=== PATIENT | female | born 1985 | race Caucasian/White ===

== ENCOUNTER 2017-09-06 15:33 | Inpatient (IN) | payer MEDICAID, OTHER ==
[2017-09-06] MEDS ORDERED: METHYLERGONOVINE 0.2 MG INJ IM (17:00)
[2017-09-06] MEDS ORDERED: OXYTOCIN 30 UNITS/LR 500 ML IV (17:00)
[2017-09-06] MEDS ORDERED: IBUPROFEN 600 MG TAB PO (17:00)
[2017-09-06] MEDS ORDERED: BUTORPHANOL 2 MG INJ IV (17:00)
[2017-09-06] MEDS ORDERED: LIDOCAINE 1% (MPF) 30 ML INJ INJ (17:00)
[2017-09-06] MEDS ORDERED: CARBOPROST 250 MCG INJ IM (17:00)
[2017-09-06] MEDS ORDERED: MISOPROSTOL 200 MCG TAB PR (17:00)
[2017-09-06] MEDS: LACTATED RINGER'S 1,000 ML IV (17:39)
[2017-09-06 17:53] LABS: ADD MAN DIFF? NO
[2017-09-06 17:56] LABS: WHITE BLOOD COUNT 7.9 10^3/ul (4.8-10.8)
[2017-09-06 17:56] LABS: BASOPHILS % 0.5 % (0.0-2.0); EOSINOPHILS # 0.7 10^3/ul (0.0-0.5); EOSINOPHILS % 8.2 % (0.0-7.0); HEMATOCRIT 33.5 % (37.0-47.0); HEMOGLOBIN 11.4 g/dl (12.0-16.0); LYMPHOCYTES % 24.9 % (15.0-51.0); MEAN CORPUSCULAR HEMOGLOBIN 31.3 pg (29.0-33.0); MEAN PLATELET VOLUME 9.9 fl (7.4-10.4); MONOCYTE # 0.5 10^3/ul (0.3-0.9); MONOCYTES % 6.3 % (0.0-11.0); NEUTROPHIL # 4.7 10^3/ul (1.6-7.5); NEUTROPHILS % 59.8 % (39.0-77.0); PLATELET COUNT 231 10^3/UL (140-415); RED BLOOD COUNT 3.64 10^6/ul (4.20-5.40); RED CELL DISTRIBUTION WIDTH 13.5 % (11.5-14.5)
[2017-09-06 18:16] LABS: INR 0.87; PARTIAL THROMBOPLASTIN TIME 27.9 Sec (25.0-35.0); PROTIME 11.9 Sec (11.9-14.9); PT RATIO 0.9
[2017-09-06 18:54] LABS: HEPATITIS B SURFACE ANTIGEN NEGATIVE (NEGATIVE)
[2017-09-06] MEDS: DINOPROSTONE 10 MG VAG SUPP VAG (23:33)
[2017-09-07] MEDS: LACTATED RINGER'S 1,000 ML IV ×5 (00:15→14:39)
[2017-09-07] MEDS ORDERED: OXYTOCIN 30 UNITS/LR 500 ML BAG IV (07:00)
[2017-09-07] MEDS ORDERED: FENTAnyl 2MCG/ML-ROPIV 0.2% 100 ML (07:38)
[2017-09-07] MEDS ORDERED: OXYTOCIN 30 UNITS/LR 500 ML IV ×2 (08:00→23:30)
[2017-09-07] MEDS ORDERED: ONDANSETRON 4 MG INJ IV ×3 (08:30→23:30)
[2017-09-07] MEDS ORDERED: DIPHENHYDRAMINE 50 MG INJ IV ×3 (08:30→23:30)
[2017-09-07] MEDS ORDERED: NALOXONE (0.4 MG/ML) INJ IV ×2 (08:30→23:30)
[2017-09-07] MEDS ORDERED: HYDROmorphONE 0.5 MG/0.5 ML SYG IV ×2 (08:30→23:30)
[2017-09-07] MEDS ORDERED: ZOLPIDEM 5 MG TAB PO (08:30)
[2017-09-07] MEDS: OXYTOCIN 30 UNITS/LR 500 ML IV ×3 (09:57→23:23)
[2017-09-07] MEDS: FENTAnyl 2MCG/ML-ROPIV 0.2% 100 ML BAG EPI (16:09)
[2017-09-07] MEDS ORDERED: CHLOROPROCAINE 3% (MPF) 20 ML INJ (18:48)
[2017-09-07] MEDS ORDERED: PHENYLephrine (100 MCG/ML) 5ML SYG (18:59)
[2017-09-07] MEDS ORDERED: morphine SULFATE/PF (10 MG/10 ML) INJ (19:38)
[2017-09-07] MEDS: KETOROLAC 30 MG INJ IV (20:09)
[2017-09-07 21:58] LABS: RAPID PLASMA REAGIN NONREACTIVE (NR)
[2017-09-07 22:08] LABS: ADD UMIC YES; UR ASCORBIC ACID NEGATIVE (NEGATIVE); UR BILIRUBIN (Dip) NEGATIVE (NEGATIVE); UR BLOOD (Dip) 2+ mg/dL (NEGATIVE); UR CLARITY CLEAR (CLEAR); UR COLOR STRAW (YELLOW); UR GLUCOSE (Dip) NEGATIVE (NEGATIVE); UR KETONES (Dip) 1+ mg/dL (NEGATIVE); UR LEUKOCYTE ESTERASE (Dip) NEGATIVE Leu/ul (NEGATIVE); UR NITRITE (Dip) NEGATIVE (NEGATIVE); UR RBC 13 /HPF (0-5); UR SPECIFIC GRAVITY (Dip) 1.005 (1.003-1.030); UR TOTAL PROTEIN (Dip) NEGATIVE (NEGATIVE); UR UROBILINOGEN (Dip) NEGATIVE (NEGATIVE); UR WBC 1 /HPF (0-5)
[2017-09-07] MEDS ORDERED: HYDROmorphONE 2 MG/ML SYG (22:13)
[2017-09-07] MEDS: CEFAZOLIN 2 GM/50 ML (PMX) 50 ML IV (22:15)
[2017-09-07 22:22] LABS: ADD MAN DIFF? NO
[2017-09-07 22:26] LABS: BASOPHILS % 0.3 % (0.0-2.0); EOSINOPHILS # 0.1 10^3/ul (0.0-0.5); EOSINOPHILS % 0.5 % (0.0-7.0); HEMATOCRIT 30.3 % (37.0-47.0); HEMOGLOBIN 10.3 g/dl (12.0-16.0); LYMPHOCYTES # 0.7 10^3/ul (0.8-2.9); MEAN CORPUSCULAR HEMOGLOBIN 31.1 pg (29.0-33.0); MEAN CORPUSCULAR VOLUME 91.5 fl (82.0-101.0); MEAN PLATELET VOLUME 9.9 fl (7.4-10.4); MONOCYTE # 0.7 10^3/ul (0.3-0.9); MONOCYTES % 4.8 % (0.0-11.0); NEUTROPHIL # 13.3 10^3/ul (1.6-7.5); NEUTROPHILS % 89.1 % (39.0-77.0); PLATELET COUNT 212 10^3/UL (140-415); RED BLOOD COUNT 3.31 10^6/ul (4.20-5.40); RED CELL DISTRIBUTION WIDTH 13.3 % (11.5-14.5)
[2017-09-07 22:26] LABS: WHITE BLOOD COUNT 14.9 10^3/ul (4.8-10.8)
[2017-09-07] MEDS: HYDROmorphONE 0.5 MG/0.5 ML SYG IV (22:26)
[2017-09-07 22:44] LABS: ALANINE AMINOTRANSFERASE 26 IU/L (13-69); ALBUMIN 2.8 g/dl (3.3-4.9); ALBUMIN/GLOBULIN RATIO 0.96; ALKALINE PHOSPHATASE 190 IU/L (42-121); ANION GAP 14 (8-16); ASPARTATE AMINO TRANSFERASE 22 IU/L (15-46); BILIRUBIN,INDIRECT 0.2 mg/dl (0-1.1); BILIRUBIN,TOTAL 0.2 mg/dl (0.2-1.3); BLOOD UREA NITROGEN 5 mg/dl (7-20); CALCIUM 8.2 mg/dl (8.4-10.2); CARBON DIOXIDE 21 mmol/L (21-31); CHLORIDE 111 mmol/L (97-110); CREATININE 0.53 mg/dl (0.44-1.00); GLUCOSE 66 mg/dl (70-220); POTASSIUM 3.6 mmol/L (3.5-5.1); SODIUM 142 mmol/L (135-144); TOTAL PROTEIN 5.7 g/dl (6.1-8.1); URIC ACID 5.1 mg/dl (3.1-7.9)
[2017-09-07 22:51] LABS: INR 0.96; PROTIME 12.9 Sec (11.9-14.9)
[2017-09-07 22:52] LABS: PARTIAL THROMBOPLASTIN TIME 29.5 Sec (25.0-35.0)
[2017-09-07] MEDS ORDERED: MISOPROSTOL 200 MCG TAB PR (23:30)
[2017-09-07] MEDS ORDERED: METOCLOPRAMIDE 10 MG INJ IV (23:30)
[2017-09-07] MEDS ORDERED: CARBOPROST 250 MCG INJ IM (23:30)
[2017-09-07] MEDS ORDERED: FENTAnyl 50 MCG/ML VIAL IV ×2 (23:30)
[2017-09-07] MEDS ORDERED: HYDROmorphONE (0.2 MG/ML) 10ML SYG IV ×2 (23:30)
[2017-09-07] MEDS ORDERED: OXYCODONE/ACETAMINOPHEN (5/325) TAB PO (23:30)
[2017-09-07] MEDS ORDERED: HYDROCODONE/APAP (5/325) TAB PO (23:30)
[2017-09-07] MEDS ORDERED: MEPERIDINE 25 MG INJ IV (23:30)
[2017-09-07] MEDS ORDERED: METHYLERGONOVINE 0.2 MG INJ IM (23:30)
[2017-09-08] MEDS: LACTATED RINGER'S 1,000 ML IV ×2 (00:18→09:18)
[2017-09-08] MEDS: OXYTOCIN 30 UNITS/LR 500 ML IV ×6 (03:23→23:23)
[2017-09-08] MEDS: CEFAZOLIN 1 GM/50 ML (PMX) 50 ML IVPB (04:13)
[2017-09-08] MEDS: LANOLIN 7 GM TUBE TOP (05:43)
[2017-09-08] MEDS: KETOROLAC 30 MG INJ IV ×2 (05:43→13:21)
[2017-09-08 09:15] LABS: ADD MAN DIFF? NO
[2017-09-08] MEDS: SENNA/DOCUSATE NA (8.6MG/50MG) TAB PO ×2 (09:18→21:45)
[2017-09-08 09:19] LABS: WHITE BLOOD COUNT 12.1 10^3/ul (4.8-10.8)
[2017-09-08 09:19] LABS: BASOPHILS % 0.2 % (0.0-2.0); EOSINOPHILS # 0.3 10^3/ul (0.0-0.5); EOSINOPHILS % 2.7 % (0.0-7.0); HEMOGLOBIN 8.2 g/dl (12.0-16.0); LYMPHOCYTES # 1.5 10^3/ul (0.8-2.9); LYMPHOCYTES % 12.3 % (15.0-51.0); MEAN CORPUSCULAR HEMOGLOBIN 31.5 pg (29.0-33.0); MEAN CORPUSCULAR HGB CONC 34.2 g/dl (32.0-37.0); MEAN CORPUSCULAR VOLUME 92.3 fl (82.0-101.0); MEAN PLATELET VOLUME 9.1 fl (7.4-10.4); MONOCYTE # 0.7 10^3/ul (0.3-0.9); MONOCYTES % 5.7 % (0.0-11.0); NEUTROPHIL # 9.5 10^3/ul (1.6-7.5); NEUTROPHILS % 78.6 % (39.0-77.0); PLATELET COUNT 164 10^3/UL (140-415); RED CELL DISTRIBUTION WIDTH 13.3 % (11.5-14.5)
[2017-09-08] MEDS: HYDROmorphONE 0.5 MG/0.5 ML SYG IV ×2 (09:19→18:01)
[2017-09-08] MEDS: OXYCODONE/ACETAMINOPHEN (5/325) TAB PO (21:56)
[2017-09-09 00:03] LABS: ADD UMIC YES; UR ASCORBIC ACID NEGATIVE (NEGATIVE); UR BILIRUBIN (Dip) NEGATIVE (NEGATIVE); UR BLOOD (Dip) 3+ mg/dL (NEGATIVE); UR CLARITY CLEAR (CLEAR); UR COLOR COLORLESS (YELLOW); UR GLUCOSE (Dip) NEGATIVE (NEGATIVE); UR KETONES (Dip) NEGATIVE (NEGATIVE); UR LEUKOCYTE ESTERASE (Dip) TRACE Leu/ul (NEGATIVE); UR NITRITE (Dip) NEGATIVE (NEGATIVE); UR RBC 12 /HPF (0-5); UR SPECIFIC GRAVITY (Dip) 1.003 (1.003-1.030); UR SQUAMOUS EPITHELIAL CELL FEW /HPF (FEW); UR TOTAL PROTEIN (Dip) NEGATIVE (NEGATIVE); UR UROBILINOGEN (Dip) NEGATIVE (NEGATIVE); UR WBC 4 /HPF (0-5)
[2017-09-09] MEDS: OXYTOCIN 30 UNITS/LR 500 ML IV (03:23)
[2017-09-09] MEDS: OXYCODONE/ACETAMINOPHEN (5/325) TAB PO ×2 (04:27→09:25)
[2017-09-09] MEDS: IBUPROFEN 600 MG TAB PO ×4 (06:16→17:51)
[2017-09-09 07:45] LABS: ADD MAN DIFF? NO
[2017-09-09 07:51] LABS: WHITE BLOOD COUNT 15.9 10^3/ul (4.8-10.8)
[2017-09-09 07:51] LABS: BASOPHIL # 0.1 10^3/ul (0.0-0.1); BASOPHILS % 0.3 % (0.0-2.0); EOSINOPHILS # 0.7 10^3/ul (0.0-0.5); EOSINOPHILS % 4.3 % (0.0-7.0); HEMATOCRIT 25.1 % (37.0-47.0); HEMOGLOBIN 8.4 g/dl (12.0-16.0); LYMPHOCYTES # 1.9 10^3/ul (0.8-2.9); LYMPHOCYTES % 11.9 % (15.0-51.0); MEAN CORPUSCULAR HEMOGLOBIN 31.3 pg (29.0-33.0); MEAN CORPUSCULAR HGB CONC 33.5 g/dl (32.0-37.0); MEAN CORPUSCULAR VOLUME 93.7 fl (82.0-101.0); MEAN PLATELET VOLUME 9.5 fl (7.4-10.4); MONOCYTE # 0.7 10^3/ul (0.3-0.9); MONOCYTES % 4.3 % (0.0-11.0); NEUTROPHIL # 12.5 10^3/ul (1.6-7.5); NEUTROPHILS % 78.3 % (39.0-77.0); PLATELET COUNT 200 10^3/UL (140-415); RED BLOOD COUNT 2.68 10^6/ul (4.20-5.40); RED CELL DISTRIBUTION WIDTH 13.5 % (11.5-14.5)
[2017-09-09] MEDS: SENNA/DOCUSATE NA (8.6MG/50MG) TAB PO ×2 (09:19→20:55)
[2017-09-09] MEDS: CEPHALEXIN 500 MG CAP PO ×2 (13:00→17:51)
[2017-09-09] MEDS: HYDROCODONE/APAP (5/325) TAB PO (20:55)
[2017-09-10] MEDS: CEPHALEXIN 500 MG CAP PO ×3 (00:01→11:53)
[2017-09-10] MEDS: IBUPROFEN 600 MG TAB PO ×3 (00:01→11:53)
[2017-09-10 08:06] LABS: ADD MAN DIFF? NO
[2017-09-10 08:10] LABS: BASOPHILS % 0.2 % (0.0-2.0); EOSINOPHILS # 1.1 10^3/ul (0.0-0.5); EOSINOPHILS % 7.2 % (0.0-7.0); HEMATOCRIT 23.8 % (37.0-47.0); HEMOGLOBIN 7.9 g/dl (12.0-16.0); LYMPHOCYTES # 1.6 10^3/ul (0.8-2.9); LYMPHOCYTES % 10.6 % (15.0-51.0); MEAN CORPUSCULAR HEMOGLOBIN 30.9 pg (29.0-33.0); MEAN CORPUSCULAR HGB CONC 33.2 g/dl (32.0-37.0); MEAN PLATELET VOLUME 9.7 fl (7.4-10.4); MONOCYTE # 0.7 10^3/ul (0.3-0.9); NEUTROPHIL # 11.3 10^3/ul (1.6-7.5); NEUTROPHILS % 76.2 % (39.0-77.0); PLATELET COUNT 205 10^3/UL (140-415); RED BLOOD COUNT 2.56 10^6/ul (4.20-5.40); RED CELL DISTRIBUTION WIDTH 13.6 % (11.5-14.5)
[2017-09-10 08:10] LABS: WHITE BLOOD COUNT 14.9 10^3/ul (4.8-10.8)
[2017-09-10] MEDS: SENNA/DOCUSATE NA (8.6MG/50MG) TAB PO (09:34)
[2017-09-10] MEDS: HYDROCODONE/APAP (5/325) TAB PO (13:00)
[2017-09-10] MEDS: DIPHTH/TET/ACEL PERTUSS (ADULT) 0.5 ML VIAL IM* (13:01)
== END 2017-09-10 17:55 | disposition home or self-care (01) | DRG 766 ==
LOC: OBT 15:33 → L-D 15:35 → PP1 09-07 23:39 → L-D 17:42 → OBT 16:54 → L-D 16:54
PROVIDERS: Obstetrics & Gynecology
PROC: 10D00Z1 Extraction of Products of Conception, Low, Open Approach (ICD-10-PCS; principal; 2017-09-07)
DX: O48.0 Post-term pregnancy (principal); O62.0 Primary inadequate contractions; Z3A.40 40 weeks gestation of pregnancy; Z37.0 Single live birth
CPT/HCPCS: 62319; 76815; 76818; 80053; 81001; 84560; 85025; 85384; 85610; 85730; 86592; 86850; 86900; 86901; 87340; 90715; 94760; 99464; J2400